=== PATIENT | female | born 1970 | race Caucasian/White ===

== ENCOUNTER 2019-05-10 07:36 | Day surgery (SDC) | payer OTHER ==
[~2019-05-10] VITALS: Ht 157.5 cm; Wt 72.6 kg
[2019-05-10] MEDS ORDERED: fentaNYL 0.05 MG/ML VIAL ONE (09:29)
[2019-05-10] MEDS ORDERED: LIDOCAINE 2% 100 MG/5 ML UJET TP ONE (09:29)
[2019-05-10] MEDS ORDERED: fentaNYL 0.05 MG/ML VIAL IVP ONE ×2 (11:40)
== END 2019-05-10 11:10 | disposition still patient (30) ==
LOC: MDS 07:36 → MMU 07:39 → MDS 11:10
PROVIDERS: ATTEND Internal Medicine Gastroenterology
DX: D50.0 Iron deficiency anemia secondary to blood loss (chronic) (principal); K64.8 Other hemorrhoids; E66.3 Overweight; Z86.010 Personal history of colon polyps; Z68.29 Body mass index [BMI] 29.0-29.9, adult
CPT/HCPCS: 45378; 81025; J3010